=== PATIENT | female | born 1970 | race Caucasian/White ===

== ENCOUNTER 2021-09-10 13:02 | Outpatient (CLI) | payer BC, OTHER | END 2021-09-10 13:03 | disposition home or self-care (01) | LOC: CSHMAMMO 13:02 | PROVIDERS: ATTEND Family Medicine | DX: Z12.31 Encounter for screening mammogram for malignant neoplasm of breast (principal) | CPT/HCPCS: 77063; 77067 ==

== ENCOUNTER 2021-12-24 12:50 | Outpatient (CLI) | payer BC | END 2021-12-24 12:51 | disposition home or self-care (01) | LOC: CSHMRI 12:50 | PROVIDERS: ATTEND Anesthesiology Pain Medicine | DX: M51.26 Other intervertebral disc displacement, lumbar region (principal); M51.36 Other intervertebral disc degeneration, lumbar region | CPT/HCPCS: 72110; 72148 ==